=== PATIENT | male | born 1980 | race Caucasian/White ===

== ENCOUNTER 2022-05-07 15:13 | Emergency (ER) | payer MEDICARE, SELFPAY ==
[2022-05-07 15:18] VITALS: BP 130/65; PULSE 70; RESP 20; TEMP 36.9; O2SAT 97
--- NOTE | 2022-05-07 15:18 | ED.URI ---
HPI - URI/Sore Throat General Chief Complaint: Upper Respiratory Infection Stated Complaint: Sore Throat/Chest Congestion Time Seen by Provider: 05/07/22 15:18 Source: patient and RN notes reviewed History of Present Illness HPI Narrative: patient is a 41-year-old male who presents to the Urgent Care with complaints of sore throat, congestion, slight wheezing and cough. Patient states that started 2 days ago and he feels that he may have strep throat. Patient states he has been using Chloraseptic spray and cough drops. Denies any known exposures. Denies fever, nausea or vomiting. No other acute complaints. No acute distress noted. Patient aware of care. Some parts of this dictation were generated by voice recognition software and may contain typographical and/or grammatical inaccuracies. Related Data Home Medications Medication Instructions Recorded Confirmed atorvastatin 80 mg tablet mg 05/07/22 famotidine 40 mg tablet mg 05/07/22 fenofibrate 160 mg tablet mg 05/07/22 hydrocodone 10 mg-acetaminophen tablet 05/07/22 325 mg tablet [id number]-[id number] cap PO 05/07/22 6,000-19,000-30,000 unit capsule,delayed rel (Creon) lisinopril 10 tablet 05/07/22 mg-hydrochlorothiazide 12.5 mg tablet pantoprazole 40 mg tablet,delayed mg PO 05/07/22 release Allergies Allergy/AdvReac Type Severity Reaction Status Date / Time No Known Allergies Allergy Verified 05/07/22 15:55 Review of Systems Review of Systems: CONSTITUTIONAL: Denies fever, chills, or sweats. EYES: Denies visual changes, redness, or discharge. ENT: Reports of sinus congestion, sore throat CARDIOVASCULAR: Denies chest pain, palpitations, or edema. RESPIRATORY: reports of cough and wheezing GASTROINTESTINAL: Denies abdominal pain, nausea, vomiting, or diarrhea. GENITOURINARY: Denies dysuria or hematuria. SKIN: Denies rash or itching. MUSCULOSKELETAL: Denies back pain, joint pain, or myalgia. NEUROLOGIC: Denies headache, numbness, or weakness. All other systems reviewed are negative, except as documented in HPI. PMFSH Comments At the time of my signature, I reviewed and agree with the nursing past medical, surgical, social, and family history. There is no relevant family history pertinent to the patient complaint. Exam Narrative: GENERAL: This is a well-nourished, well-developed patient, in no apparent distress. HEAD: normocephalic, atraumatic. EYES: PERRL. Sclera clear/white. Vision is grossly intact. EARS: External ears normal, auditory canals clear and without drainage, TMs normal without perforation. Hearing grossly intact. NOSE: External nose normal with no obvious nasal discharge, nares without redness, clear rhinorrhea. THROAT: Mucous membranes moist, moderate erythema noted to posterior pharynx with moderate postnasal drainage NECK: Neck supple, non-tender mild to moderate bilateral submandibular lymphadenopathy CARDIOVASCULAR: Regular rate and rhythm without murmurs, gallops, or rubs. RESPIRATORY: slight crackles throughout SKIN: warm, intact with no suspicious lesions or rash, good texture and turgor. NEURO: awake, alert, and oriented to person, place and time. There were no obvious focal neurologic abnormalities. EXTREMITIES: No clubbing, cyanosis, or edema. Course Course Level of Care: Express Care Visit Vital Signs Vital signs: Vital Signs Temperature 98.5 F 05/07/22 15:18 Pulse Rate 70 05/07/22 15:18 Respiratory Rate 20 05/07/22 15:18 Blood Pressure 130/65 05/07/22 15:18 Pulse Oximetry 97 05/07/22 15:18 Oxygen Delivery Room Air 05/07/22 15:18 Temperature 98.5 F 05/07/22 15:18 Pulse Rate 70 05/07/22 15:18 Respiratory Rate 20 05/07/22 15:18 Blood Pressure 130/65 05/07/22 15:18 Pulse Oximetry 97 05/07/22 15:18 Oxygen Delivery Room Air 05/07/22 15:18 reviewed MDM - URI/Sore Throat MDM Narrative Medical decision making narrative: .wed lab results wi
== END 2022-05-07 16:09 | disposition home or self-care (01) ==
PROVIDERS: Emergency Provider Nurse Practitioner Family
DX: J02.9 Acute pharyngitis, unspecified (principal); J06.9 Acute upper respiratory infection, unspecified; E78.00 Pure hypercholesterolemia, unspecified; I10 Essential (primary) hypertension; K21.9 Gastro-esophageal reflux disease without esophagitis; E11.9 Type 2 diabetes mellitus without complications
CPT/HCPCS: 87081; 87804; 87880; 99213; G0463